=== PATIENT | female | born 1970 | race Hispanic/Latino ===

== ENCOUNTER 2023-01-08 11:23 | Emergency (ER) | payer SELFPAY ==
--- NOTE | 2023-01-08 11:40 | ER ---
Nurse's Notes [facility] Name: Lydia Smith Age: 52 yrs Sex: Female : 1970 Arrival Date: 01/08/2023 Time: 11:23 Bed IW2 Private MD: Diagnosis: Pain in left toe(s) Presentation: 01/08 11:36 Chief complaint: Left great toe pain x 2 days. Coronavirus screen: At this time, the hb client does not indicate any symptoms associated with coronavirus-19. Ebola Screen: No symptoms or risks identified at this time. Initial Sepsis Screen: Does the patient meet any 2 criteria? No. Patient's initial sepsis screen is negative. Does the patient have a suspected source of infection? No. Patient's initial sepsis screen is negative. Risk Assessment: Do you want to hurt yourself or someone else? Patient reports no desire to harm self or others. Onset of symptoms was January 07, 2023. 11:36 Method Of Arrival: Ambulatory hb 11:36 Acuity: LOLI 4 hb Triage Assessment: 11:38 General: Appears in no apparent distress. Behavior is calm, cooperative. Pain: Pain hb currently is 10 out of 10 on a pain scale. Neuro: Level of Consciousness is awake, alert, obeys commands, Oriented to person, place, time, situation. Cardiovascular: Patient's skin is warm and dry. Respiratory: Respiratory effort is even, unlabored, Respiratory pattern is regular, symmetrical. Historical: - Allergies: 11:37 No Known Allergies; hb - Home Meds: 11:37 None [Active]; hb - PMHx: 11:37 None; hb - PSHx: 11:37 None; hb - Immunization history:: Adult Immunizations up to date. - Social history:: Smoking status: Patient denies any tobacco usage or history of. Screenin:38 [facility] ED Fall Risk Assessment (Adult) Score/Fall Risk Level 0 - 2 = Low Risk hb Oriented to surroundings, Maintained a safe environment. Abuse screen: Denies threats or abuse. Denies injuries from another. Nutritional screening: No deficits noted. Tuberculosis screening: No symptoms or risk factors identified. Assessment: 11:38 General: See triage assessment. hb Vital Signs: 11:36 BP 153 / 93; Pulse 64; Resp 16; Temp 97.8(O); Pulse Ox 100% on R/A; Pain 10/10; hb 11:36 Pain Scale: Adult hb ED Course: 11:28 Patient arrived in ED. mg5 11:29 Kevin Garrido DO is Attending Physician. ms3 11:37 Triage completed. hb 11:38 Arm band placed on. hb 11:38 Patient has correct armband on for positive identification. Provided Education on: . hb 11:38 No provider procedures requiring assistance completed. Patient did not have IV access hb during this emergency room visit. 11:40 Thai Anguiano DPM is Referral Physician. ms3 11:46 Radha Perales, RN is Primary Nurse. hb Administered Medications: No medications were administered Medication: 11:38 VIS not applicable for this client. hb Outcome: 11:39 Discharge ordered by . ms3 11:46 Patient left the ED. hb Signatures: Radha Perales, RN RN Kevin Garrido DO DO ms3 Bere Oconnor mg5
--- NOTE | 2023-01-08 11:40 | EDPHYS ---
Physician Documentation [facility] Name: Lydia Smith Age: 52 yrs Sex: Female : 1970 Arrival Date: 01/08/2023 Time: 11:23 Bed IW2 Private MD: ED Physician Kevin Garrido HPI: 01/08 11:43 This 52 yrs old Female presents to ER via Ambulatory with complaints of Toe ms3 Problem. 11:43 52-year-old female with no past medical history presents for left great toe pain that ms3 began yesterday. Patient states pain is 10/10. Patient denies fevers, chills, trauma. Historical: - Allergies: 11:37 No Known Allergies; hb - Home Meds: 11:37 None [Active]; hb - PMHx: 11:37 None; hb - PSHx: 11:37 None; hb - Immunization history:: Adult Immunizations up to date. - Social history:: Smoking status: Patient denies any tobacco usage or history of. ROS: 11:43 MS/extremity: Positive for Erythema, pain to left great toe. ms3 11:43 Constitutional: Negative for fever, and chills. Neck: Negative for injury, pain, and swelling, Cardiovascular: Negative for chest pain, and palpitations. Respiratory: Negative for shortness of breath, cough, wheezing, and pleuritic chest pain, Abdomen/GI: Negative for abdominal pain, nausea, vomiting, diarrhea, and constipation. 11:43 All other systems are negative. Exam: 11:43 Constitutional: This is a well developed, well nourished patient who is awake, alert, ms3 and in no acute distress. Head/Face: Normocephalic, atraumatic. Chest/axilla: Normal chest wall appearance and motion. Nontender with no deformity. Cardiovascular: Regular rate and rhythm with a normal S1 and S2. No gallops, murmurs, or rubs. Normal PMI, no JVD. No pulse deficits. Respiratory: Lungs have equal breath sounds bilaterally, clear to auscultation and percussion. No rales, rhonchi or wheezes noted. No increased work of breathing, no retractions or nasal flaring. Abdomen/GI: Soft, non-tender, with normal bowel sounds. No distension or tympany. No guarding or rebound. No evidence of tenderness throughout. 11:43 Musculoskeletal/extremity: Left great toe with thickened toenail, mild swelling, mild erythema. Vital Signs: 11:36 BP 153 / 93; Pulse 64; Resp 16; Temp 97.8(O); Pulse Ox 100% on R/A; Pain 10/10; hb 11:36 Pain Scale: Adult hb MDM: 11:39 Patient medically screened. ms3 11:43 Differential diagnosis: cellulitis, Ingrown toenail versus onychomycosis. Data ms3 reviewed: vital signs, nurses notes, and as a result, I will discharge patient. I considered the following discharge prescriptions or medication management in the emergency department Prescriptions given. Historians other than the Patient: Daughter/Son: Patient's daughter. Counseling: I had a detailed discussion with the patient and/or guardian regarding the historical points, exam findings, and any diagnostic results supporting the discharge/admit diagnosis, the need for outpatient follow up, to return to the emergency department if symptoms worsen or persist or if there are any questions or concerns that arise at home. ED course: Discussed physical exam findings and treatment plan with patient and her daughter. They understand and agree with plan. Patient to see Dr. Anguiano in 2 to 3 days. Return precautions discussed include worsening symptoms, or any other concerns. Administered Medications: No medications were administered Disposition Summary: 01/08/23 11:39 Discharge Ordered Location: Home ms3 Condition: Stable ms3 Diagnosis - Pain in left toe(s) ms3 Followup: ms3 - With: Thai Anguiano DPM - When: 2 - 3 days - Reason: Recheck today's complaints Discharge Instructions: - Discharge Summary Sheet ms3 - Ingrown Toenail ms3 - Foot Pain ms3 Forms: - Work release form [id number] - Medication Reconciliation Form ms3 - Thank You Letter ms3 - Antibiotic Education ms3 - Prescription Opioid Use ms3 - Patient Portal Instructions ms3 - Leadership Thank You Letter ms3 Prescriptions: - Ibuprofen 600 mg Oral Tablet - take 1 tablet by ORAL route every 6 hours As needed take with food; 30 tablet; ms3 Refills: 0, Product Selection Permitted - Bactrim DS 800-160 mg Oral Tablet - take 1 tablet by ORAL route every 12 hours for 10 days; 20 tablet; Refills: 0, ms3 Product Selection Permitted Signatures: Radha Perales, RN RN hb Garrido, Kevin, DO DO ms3
[2023-01-08 11:50] VITALS: BP 153/93; TEMP 97.8; O2SAT 100
== END 2023-01-08 11:46 | disposition home or self-care (01) ==
LOC: ER 11:23
DX: M79.675 Pain in left toe(s) (principal)
CPT/HCPCS: 99281